=== PATIENT | female | born 1965 | race Caucasian/White ===

== ENCOUNTER 2020-05-31 11:43 | Outpatient (CLI) | payer BC, SELFPAY ==
--- NOTE | ~2020-05-31 | XR_ITS ---
EXAMINATION: XR lumbar spine 2-3V EXAM DATE: 05/31/2020 12:19 INDICATION: Acute low back pain. TECHNIQUE: Lumber spine frontal, lateral, lateral L5-S1 projections for interpretation. There is no prior study for comparison. FINDINGS: The vertebral bodies are aligned in the AP dimension. Vertebral body and disc heights are well-maintained. There are no acute fractures identified. Mild to moderate lower lumbar facet arthrop athy. Sacrum, sacroiliac joints, sacral arcuate lines are intact. Paraspinal soft tissue is unremarka ble. IMPRESSION: Mild to moderate lower lumbar facet arthropathy. Reviewed, dictated and finalized at location B.
== END 2020-05-31 11:44 | disposition home or self-care (01) ==
LOC: ANHIMG 11:55
PROVIDERS: PCP Family Medicine; Visit Provider Physician Assistant
DX: M54.5 Low back pain (principal)
CPT/HCPCS: 72100

== ENCOUNTER 2022-05-09 11:44 | Outpatient (CLI) | payer BC, SELFPAY ==
--- NOTE | ~2022-05-09 | MMUS_ITS ---
EXAMINATION: MM diagnostic laila BI w sophia, US breast BI complete HISTORY: Right skin lesion. Changes and skin texture. TECHNIQUE: Bilateral ML, MLO and CC full field and right ML and CC spot 3-D tomosynthesis images were performed and synthetic 2-D images were generated. CAD analysis was submitted and interpreted. High resolution complete bilateral breast ultrasound including all 4 quadrants and subareolar areas of eac h breast was performed, per referring physician orders.. COMPARISON: 05/10/2021, 05/09/2020 [facility] bilateral screening mammogram BREAST PARENCHYMAL COMPOSITION: The breasts are heterogeneously dense, which may obscure small masses . FINDINGS: MAMMOGRAPHIC FINDINGS: No suspicious mass or architectural distortion, malignant calcification, skin thickening or retractio n or significant new or developing density is detected. ULTRASOUND: No suspicious mass or shadowing of either breast is detected. No cysts are identified. No other signi ficant sonographic finding. IMPRESSION: 1. No mammographic evidence of malignancy 2. Routine mammographic screening is recommended BI-RADS Category 1: Negative Reviewed, dictated and finalized at location A. IMPRESSION: 1. No mammographic evidence of malignancy 2. Routine mammographic screening is recommended BI-RADS Category 1: Negative
== END 2022-05-09 11:45 | disposition home or self-care (01) ==
PROVIDERS: PCP Family Medicine; Visit Provider Physician Assistant
DX: R23.4 Changes in skin texture (principal); N64.4 Mastodynia
CPT/HCPCS: 76641; 77062; 77066; G0279

== ENCOUNTER 2023-06-05 11:16 | Outpatient (CLI) | payer OTHER, SELFPAY ==
--- NOTE | ~2023-06-05 | MMUS_ITS ---
EXAMINATION: MM diagnostic laila BI w sophia, US breast RT complete HISTORY: Right nipple inversion with elevation of right arm TECHNIQUE: Bilateral full field ML, MLO and CC and spot left MLO, MLO and CC 3-D tomosynthesis images were performed and synthetic 2-D images were generated. CAD analysis was submitted and interpreted. High resolution complete right breast ultrasound examination including all 4 quadrants and subareolar area was performed. COMPARISON: The only prior available from PACS at this time is 05/10/2021 bilateral screening mammogra m BREAST PARENCHYMAL COMPOSITION: The breasts are heterogeneously dense, which may obscure small masses . FINDINGS: MAMMOGRAPHIC FINDINGS: There are scattered occasional bilateral benign calcifications. No malignant calcification is evident . No suspicious mass, architectural distortion, skin thickening or retraction is detected. No significant new or developing density is noted. Since 05/10/2021. There is a biopsy marker in the anterior superior right breast; history of prior benign breast biopsy . ULTRASOUND: 4:00 near nipple: Approximately 2.2 x 4 mm circumscribed sonolucency without internal vascularity or posterior shadowing, likely a small cyst. No suspicious mass or shadowing of the right breast is detected. IMPRESSION: 1. Benign findings; no evidence of malignancy 2. Routine annual mammographic screening is recommended BI-RADS Category 2: Benign finding(s). Reviewed, dictated and finalized at location A. IMPRESSION: 1. Benign findings; no evidence of malignancy 2. Routine annual mammographic screening is recommended BI-RADS Category 2: Benign finding(s).
== END 2023-06-05 11:17 | disposition home or self-care (01) ==
PROVIDERS: PCP Family Medicine; Visit Provider Physician Assistant
DX: N64.59 Other signs and symptoms in breast (principal)
CPT/HCPCS: 76641; 77062; 77066; G0279

== ENCOUNTER 2024-04-28 12:48 | Outpatient (CLI) | payer OTHER, SELFPAY ==
--- NOTE | ~2024-04-28 | MMUS_ITS ---
EXAMINATION: MM diagnostic laila BI w sophia, US breast BI complete HISTORY: Breast pain TECHNIQUE: Additional 3-D tomosynthesis images of the breasts were performed and synthetic 2-D images were generated. CAD analysis was submitted and interpreted. High resolution bilateral complete breas t ultrasound was performed. COMPARISON: Comparison to multiple prior studies sequentially, with oldest reviewed study dated 05/09. BREAST PARENCHYMAL COMPOSITION: Dense: The breasts are heterogeneously dense, which may obscure small masses FINDINGS: MAMMOGRAPHIC FINDINGS: There are no suspicious masses, calcifications or architectural distortion in either breast to sugges t malignancy. ULTRASOUND: Complete bilateral US of all 4 quadrants of the breasts and retroareolar region was reviewed. Normal heterogeneous echotexture without focal solid or cystic mass. IMPRESSION: 1. No evidence for malignancy in either breast. 2. Routine yearly screening mammogram and regular clinical breast examination are recommended. BI-RADS Category 1: Negative Reviewed, dictated and finalized at location B. IMPRESSION: 1. No evidence for malignancy in either breast. 2. Routine yearly screening mammogram and regular clinical breast examination a re recommended. BI-RADS Category 1: Negative
== END 2024-04-28 12:49 | disposition home or self-care (01) ==
PROVIDERS: PCP Family Medicine; Visit Provider Physician Assistant
DX: N64.4 Mastodynia (principal)
CPT/HCPCS: 76641; 77062; 77066; G0279

== ENCOUNTER 2024-08-30 08:21 | Outpatient (CLI) | payer OTHER, SELFPAY ==
--- NOTE | ~2024-08-30 | CT_ITS ---
EXAMINATION: CT chest abdomen pelvis w con DATE: 08/30/2024 09:08 INDICATION: Other secondary thrombocytopenia. TECHNIQUE: Computed tomography (CT) of the chest, abdomen, and pelvis was performed with 100 mL Omnip aque 350 intravenous contrast. Automated exposure control and iterative reconstruction technique were employed. The dose-length product was 740.06 mGy-cm. COMPARISON: None FINDINGS: CHEST CT: The lungs demonstrate mild atelectasis. A calcified right lung nodule is consistent with old granulom atous disease. No pleural effusion. The heart size is normal. No pericardial effusion. There is moder ate cervical spondylosis and mild thoracic spondylosis. ABDOMEN/PELVIS CT: The liver demonstrates a nodular surface contour, consistent with cirrhosis. There is severe splenome mariana measuring 18.4 cm. Paraesophageal varices are noted. The gallbladder, pancreas, adrenal glands, and right kidney are normal. There is a 5 mm cyst in left kidney. There is diverticulosis of the colo n without evidence of diverticulitis. There are no dilated loops of bowel. The appendix is normal. Th ere are no pathologically enlarged lymph nodes. There is no free intraperitoneal fluid. There is mild lumbar spondylosis. IMPRESSION: 1. Cirrhosis of the liver with portal venous hypertension. Reviewed, dictated and finalized at location A. RD [employer]
[2024-08-30 09:05] LABS: Estimated Glomerular Filt Rate > 60
== END 2024-08-30 08:22 | disposition home or self-care (01) ==
PROVIDERS: PCP Family Medicine; Visit Provider Internal Medicine
DX: D69.59 Other secondary thrombocytopenia (principal); K74.69 Other cirrhosis of liver
CPT/HCPCS: 71260; 74177; Q9967